=== PATIENT | female | born 2000 | race Caucasian/White ===

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

== ENCOUNTER 2019-08-09 00:18 | Emergency (ER) | payer OTHER ==
[2019-08-09 00:27] VITALS: RESP 18
[2019-08-09 00:56] LABS: RBC,Urine >182 /hpf (0-5); Squamous Epithelial Cell,Urine 5 /hpf (0-4)
[2019-08-09 01:05] LABS: Appearance,Urine Cloudy (Clear); Bilirubin,Urine Negative (Negative); Blood,Urine Large (Negative); Color,Urine Red; Glucose,Urine (UA) Negative (Negative); Ketones,Urine Negative (Negative); Leukocyte Esterase,Urine Large (Negative); Nitrite,Urine Negative (Negative); PH, Urine 7.5 (5.0-8.0); Protein,Urine 1+ (Negative); Specific Gravity,Urine 1.016 (1.001-1.035); Urobilinogen,Urine <2.0 mg/dL (<2.0)
--- NOTE | 2019-08-09 01:29 | ED ---
Female Urogenital HPI - General Chief complaint: Urogenital Stated complaint: Blood in Urine Time Seen by Provider: 08/09/19 00:41 Source: patient Mode of arrival: ambulatory Limitations: no limitations - History of Present Illness Initial comments: Patient is 19-year-old woman with history of previous hematuria who states that when she had used the bathroom tonight she noted that there was blood in her urine. Patient is denying urinary tract infection symptoms. She has not had frequency, dysuria, abdominal pain, flank pain, fever or chills. MD Complaint: other (Hematuria) -: hour(s) Severity scale (1-10): 0 Improves with: none Worsens with: none Patient : No Associated Symptoms: denies other symptoms - Related Data Allergies Allergy/AdvReac Type Severity Reaction Status Date / Time No Known Allergies Allergy Verified 08/09/19 00:27 Review of Systems ROS Statement: Those systems with pertinent positive or pertinent negative responses have been documented in the HPI. ROS Other: All systems not noted in ROS Statement are negative. Constitutional: Denies: fever, chills Respiratory: Denies: cough, dyspnea Cardiovascular: Denies: chest pain, palpitations Gastrointestinal: Denies: abdominal pain, vomiting, diarrhea Genitourinary: Reports: hematuria. Denies: urgency, dysuria, frequency, discharge, abnormal menses Musculoskeletal: Denies: back pain Skin: Denies: rash Past Medical History Additional Past Medical History / Comment(s): frequent UTI History of Any Multi-Drug Resistant Organisms: None Reported Past Surgical History: No Surgical Hx Reported Smoking Status: Never smoker Past Alcohol Use History: None Reported Past Drug Use History: None Reported General Exam Limitations: no limitations General appearance: alert, in no apparent distress Head exam: Present: atraumatic, normocephalic Respiratory exam: Present: normal lung sounds bilaterally. Absent: respiratory distress, wheezes, rales, rhonchi, stridor Cardiovascular Exam: Present: regular rate, normal rhythm, normal heart sounds. Absent: systolic murmur, diastolic murmur, rubs, gallop GI/Abdominal exam: Present: soft. Absent: distended, tenderness, guarding, rebound, rigid, mass Back exam: Present: normal inspection. Absent: CVA tenderness (R), CVA tenderness (L) Skin exam: Present: warm, dry, intact, normal color. Absent: rash Course Vital Signs 10/29/19 10/29/19 00:23 01:41 Temperature 97.6 F 98 F Pulse Rate 86 78 Respiratory 18 18 Rate Blood Pressure 114/79 112/77 O2 Sat by Pulse 98 95 Oximetry Medical Decision Making - Medical Decision Making Patient is 19-year-old woman with painless hematuria. She is not having urinary tract infection symptoms. She has had this previously. I was going to recommend imaging, however ultrasound not available currently. Patient will follow-up for ultrasound of kidneys or bladder and then for urology versus nephrology consultation. Discussed further follow-up and return parameters. - Lab Data Lab Results 08/09/19 08/09/19 Range/Units 00:37 00:37 Urine Color Red Urine Appearance Cloudy H (Clear) Urine pH 7.5 (5.0-8.0) Ur Specific [place] 1.016 (1.001-1.035) Urine Protein 1+ H (Negative) Urine Glucose (UA) Negative (Negative) Urine Ketones Negative (Negative) Urine Blood Large H (Negative) Urine Nitrite Negative (Negative) Urine Bilirubin Negative (Negative) Urine Urobilinogen <2.0 (<2.0) mg/dL Ur Leukocyte Esterase Large (Negative) Urine RBC >182 H (0-5) /hpf Ur Squamous Epith Cells 5 H (0-4) /hpf Urine HCG, Qual Not Detected (Not Detectd) Disposition Clinical Impression: Hematuria Disposition: HOME SELF-CARE Condition: Good Instructions (If sedation given, give patient instructions): Hematuria (ED) Is patient prescribed a controlled substance at d/c from ED?: No Referrals: Kerline Guy DO [Primary Care Provider] - 1-2 days Jesus Manuel Goldsmith MD [STAFF PHYSICIAN] - 1-2 days
[2019-08-09 01:42] VITALS: BP 112/77; PULSE 78; TEMP 98
== END 2019-08-09 01:44 | disposition home or self-care (01) ==
LOC: EC 00:18
DX: R31.9 Hematuria, unspecified (principal); Z87.440 Personal history of urinary (tract) infections
CPT/HCPCS: 81001; 81025; 87077; 87086; 87186; 99283